=== PATIENT | female | born 1960 | race Two or more races ===

== ENCOUNTER 2024-08-05 17:21 | Emergency (ER) | payer MEDICAID, OTHER ==
[~2024-08-05] VITALS: Ht 157.5 cm; Wt 101.8 kg
[2024-08-05 17:43] VITALS: BP 182/113; RESP 20; O2SAT 97
[2024-08-05] MEDS ORDERED: hydrALAZINE HCL 20 MG/ML VL IV ONE (17:45)
[2024-08-05] MEDS ORDERED: ACETAMINOPHEN 500 MG TAB or CAP PO ONE (17:45)
[2024-08-05 17:53] VITALS: PULSE 92
--- NOTE | 2024-08-05 17:54 | ECG ---
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
--- NOTE | 2024-08-05 17:58 | ED.PDOC ---
SOB-HPI HPI Comments 64 year old female presents to the ED with chief complaint of SOB. Patient reports she has been experiencing SOB with associated cough with yellow phlegm, body aches, and fever for the past 2 days, worse today. Patient relays that her daughter is at home sick with similar symptoms. Patient's BP noted in triage was 182/113. Patient denies any chest pain, DELANEY, N/V/D, or dizziness. 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 Family History Family History: Reviewed,noncontributory to illness Social History Smoker: Non-Smoker Alcohol: Denies ETOH Use Drugs: Denies Drug Use Lives In: Home Constitutional: reports: fever, malaise; denies: chills, diaphoresis, fatigue, sweats, weakness, others EENTM: denies: blurred vision, double vision, ear bleeding, ear discharge, ear drainage, ear pain, ear ringing, eye pain, eye redness, hearing loss, mouth pain, mouth swelling, nasal discharge, nose bleeding, nose congestion, nose pain, photophobia, tearing, throat pain, throat swelling, voice changes, others Respiratory: reports: cough, shortness of breath; denies: hemoptysis, orthop pro, SOB at rest, SOB with excertion, stridor, wheezing, others Cardiovascular: denies: chest pain, dizzy spells, diaphoresis, Dyspnea on exertion, edema, irregular heart beat, left arm pain, lightheadedness, palpitations, PND, syncope, others Gastrointestinal: denies: abdomen distended, abdominal pain, blood streaked bowels, constipated, diarrhea, dysphagia, difficulty swallowing, hematemesis, melena, nausea, poor appetite, poor fluid intake, rectal bleeding, rectal pain, vomiting, others Genitourinary: denies: abnormal vagina bleeding, burning, dyspareunia, dysuria, flank pain, frequency, hematuria, incontinence, pain, , vagina discharge, urgency, others Neurological: denies: dizziness, fainting, headache, left sided numbness, left sided weakness, numbness, paresthesia, pre-existing deficit, right sided numbness, right sided weakness, seizure, speech problems, tingling, tremors, weakness, others Musculoskeletal: denies: back pain, gout, joint pain, joint swelling, muscle pain, muscle stiffness, neck pain, others Integumetry: denies: bruises, change in color, change in hair/nails, dryness, laceration, lesions, lumps, rash, wounds, others Allergic/Immunocompromised: denies: Difficulty Healing, Frequent Infections, Hives, Itching, others Hematologic/Lymphatic: denies: anemia, blood clots, easy bleeding, easy bruising, swollen glands, others Endocrine: denies: excessive hunger, excessive sweating, excessive thirst, excessive urination, flushing, intolerance to cold, intolerance to heat, unexplained weight gain, unexplained weight loss, others Psychiatric: denies: anxiety, bipolar disorder, depression, hopeless, panic disorder, schizophrenia, sleepless, suicidal, others All Other Systems: Reviewed and Negative Physical Exam General Appearance: Mild Distress HEENT: Other (Full symmetric, moist mucous membranes, no facial asymmetry) Neck: Full Range of Motion, Normal Inspection Respiratory: Decreased Breath Sounds, No Accessory Muscle Use, No Respiratory Distress, Other (Productive sounding cough) Cardiovascular: No Edema, No JVD, Regular Rate/Rhythm Breast Exam: Deferred Gastrointestinal: Non Tender, Soft Genitalia: Deferred Pelvic: Deferred Rectal: Deferred Extremities: Normal inspection, Normal range of motion, Non-tender, No pedal edema Musculoskeletal : Apperance: Normal Neurologic: Alert (Oriented x4), Normal Affect, Normal Mood, Other (Ambulatory without difficulty. No gross focal deficit.) Cerebellar Function: NOT DONE Reflexes: NOT DONE Skin: Dry, Normal Color, Warm Lymphatic: NOT DONE EKG EKG : Comments Sinus rhythm, rate 92, normal HI and QRS intervals, QTC prolonged at 542, normal axis, normal QRS, nonspecific T changes. Was a procedure done? Was a procedure done?: No Differential Dx Differential Diagnosis: Asthma, Bronchitis, CHF, COPD, Myocardial infarction, Pneumonia, Respiratory Distress, URI, Other (Sepsis, among others) X-Ray, Labs, Meds, VS Vital Signs Date Time Temp Pulse Resp B/P (MAP) Pulse Ox O2 Delivery O2 Flow Rate FiO2 08/05/24 17:53 92 08/05/24 17:43 102.5 94 20 182/113 (136) 97 Lab Test 08/05/24 18:00 Range/Units White Blood Count 4.5 4.4-10.8 10^3/uL Red Blood Count 4.19 4.0-5.20 10^6/uL Hemoglobin 13.3 12.2-16.2 g/dL Hematocrit 40.1 36.0-46.0 % Mean Corpuscular Volume 95.6 80.0-100.0 fL Mean Corpuscular Hemoglobin 31.7 28.0-32.0 pg Mean Corpuscular Hemoglobin Concent 33.2 32.0-36.0 g/dL Red Cell Distribution Width 13.5 11.8-14.3 % Platelet Count 173 140-450 10^3/uL Mean Platelet Volume 8.3 6.9-10.8 fL Neutrophils (%) (Auto) 37.0-80.0 % Lymphocytes (%) (Auto) 10.0-50.0 % Monocytes (%) (Auto) 0.0-12.0 % Basophils (%) (Auto) 0.0-2.0 % Neutrophils # (Auto) 1.6-8.6 10 ^3/uL Lymphocytes # (Auto) 0.4-5.4 10 ^3/uL Monocytes # (Auto) 0-1.3 10 ^3/uL Differential Total Cells Counted 100.0 100 Neutrophils % (Manual) 76 37.0-80.0 Band Neutrophils % (Manual) 0 Lymphocytes % (Manual) 9 L 10.0-50.0 Monocytes % (Manual) 14 H 0-12 Eosinophils % (Manual) 1 0-7 Basophils % (Manual) 0 0.0-2.0 Metamyelocytes % (manual) 0 Myelocytes % (Manual) 0 Promyelocytes % (Manual) 0 Blast Cells % (Manual) 0 Reactive Lymphocytes 0 Platelet Estimate Adequate Red Blood Cell Morphology Normal Sodium Level 139 136-145 mmol/L Potassium Level 3.7 3.5-5.1 mmol/L Chloride Level 103 98-107 mmol/L Carbon Dioxide Level 28 20-31 mmol/L Anion Gap 8 5-15 Blood Urea Nitrogen 10 9-23 mg/dL Creatinine 1.05 H 0.550-1.02 mg/dL Glomerular Filtration Rate Calc 59 >90 mL/min BUN/Creatinine Ratio 9.5 L 10.0-20.0 Serum Glucose 154 H 74-106 mg/dL Lactic Acid Level 1.6 0.4-2.0 mmol/L Calcium Level 8.9 8.7-10.4 mg/dL B-Type Natriuretic Peptide 180.95 0-100 pg/mL X-Ray, Labs, Meds, VS Comment 64-year-old female with a history of hypertension, dyslipidemia and CAD brought in by family for evaluation of fever, cough, body aches and shortness of breath Vitals remarkable for temperature 102.5, BP 182/113 Exam remarkable for productive sounding cough Rhythm strip independently interpreted by me: Sinus rhythm, rate 92, no ectopy. Chest x-ray ordered but not done, as the patient did not answer when called twice CBC, basic metabolic panel BNP and lactate unremarkable for any abnormality of acute significance Influenza and COVID pending Following medications were ordered for the patient: Tylenol 1 g p.o., hydralazine 10 mg IV Medications were not administered, as when the patient was called there was no answer. It was assumed the patient had eloped prior to completion of treatment. Time of 1ST Reevaluation: 18:54 Reevaluation 1ST: Unchanged Time of 2ND Reevaluation: 20:43 Reevaluation 2ND: No answer from waiting rm Patient Education/Counseling: Diagnosis, Treatment Family Education/Counseling: Diagnosis, Treatment Departure 1 Departure Time of Disposition: 20:44 Impression: Primary Impression: Febrile illness Additional Impression: Accelerated hypertension Disposition: 07 LEFT AWOL/ELOPED Condition: Fair Discharged With: Relative Critical Care Note Critical Care Time?: No Stability Stability form required: No Heart Score Heart Score: Heart Score Response (Comments) Value History N/A 0 EKG N/A 0 Age N/A 0 Risk Factors N/A 0 Troponin N/A 0 Total 0 I personally scribed for NALLELY QUILES MD ([email or web address]) on 08/05/24 at 17:58. Electronically submitted by dE Wright ([email or web address]). NALLELY QUILES MD Aug 05, 2024 17:58
[2024-08-05 18:27] LABS: Hematocrit 40.1 % (36.0-46.0); Hemoglobin 13.3 g/dL (12.2-16.2); Mean Corpuscular Hemoglobin 31.7 pg (28.0-32.0); Mean Corpuscular Hgb Conc. 33.2 g/dL (32.0-36.0); Mean Corpuscular Volume 95.6 fL (80.0-100.0); Platelet Count (auto) 173 10^3/uL (140-450); Red Blood Cells 4.19 10^6/uL (4.0-5.20); Red Cell Distribution Width 13.5 % (11.8-14.3); White Blood Cell 4.5 10^3/uL (4.4-10.8)
[2024-08-05 18:42] LABS: Chloride 103 mmol/L (98-107); Potassium 3.7 mmol/L (3.5-5.1); Sodium 139 mmol/L (136-145)
[2024-08-05 18:43] LABS: Anion Gap 8 (5-15); Band Neutrophils % (manual) 0; Basophils % (manual) 0 (0.0-2.0); Blast Cells 0; Carbon Dioxide 28 mmol/L (20-31); Metamyelocytes % 0; Myelocytes % 0; Promyelocytes % 0; Reactive Lymphocytes 0
[2024-08-05 18:44] LABS: Calcium 8.9 mg/dL (8.7-10.4)
[2024-08-05 18:48] LABS: BUN/Creatinine Ratio 9.5 (10.0-20.0); Blood Urea Nitrogen 10 mg/dL (9-23)
[2024-08-05 18:52] LABS: Glucose 154 mg/dL (74-106)
[2024-08-05 19:04] LABS: Lymphocytes % (manual) 9 (10.0-50.0); Monocytes % (manual) 14 (0-12)
[2024-08-05 19:05] LABS: Eosinophils % (manual) 1 (0-7); Platelet Estimate Adequate; RBC Morphology Normal
== END 2024-08-05 20:45 | disposition left against medical advice (07) ==
LOC: ER 17:21
DX: R50.9 Fever, unspecified (principal); I10 Essential (primary) hypertension; R94.31 Abnormal electrocardiogram [ECG] [EKG]; Z95.1 Presence of aortocoronary bypass graft
CPT/HCPCS: 36415; 80048; 83605; 83880; 85007; 85027; 87040; 93005